=== PATIENT | female | born 1930 | race Caucasian/White ===

== ENCOUNTER 2020-11-11 19:55 | Emergency (ER) | payer OTHER ==
[~2020-11-11] VITALS: Ht 165.1 cm; Wt 49.9 kg
[2020-11-11 19:55] VITALS: BP_SYST 112
--- NOTE | 2020-11-11 20:00 | NUR ---
Patient biba from [facility] for a head injury. The patient evidently rolled out of bed, and bumped her head on an adjacent dresser. There was no LOC, and the patient only has minor discomfort now. She is sleeping comfortably in the ambulance gurney. Pt breathing easy, not in distress.
--- NOTE | 2020-11-11 20:01 | NUR ---
ER examining patient inside the ambulance
[2020-11-11] MEDS ORDERED: LOSA50TA3 PO (20:12)
[2020-11-11] MEDS ORDERED: BUSP7.5T7 PO (20:12)
[2020-11-11] MEDS ORDERED: NOR10 PO (20:12)
[2020-11-11] MEDS ORDERED: LEVO150T8 PO (20:13)
[2020-11-11] MEDS ORDERED: MONT10TA22 PO (20:14)
[2020-11-11] MEDS ORDERED: ACET325T53 PO (20:17)
[2020-11-11] MEDS ORDERED: ALBU8.5H8 INH (20:18)
[2020-11-11] MEDS ORDERED: LORA-258 PO (20:19)
--- NOTE | 2020-11-11 21:55 | NUR ---
Pt resting comfortably in the ambulance, resp even unlabored
--- NOTE | 2020-11-12 00:55 | NUR ---
Patient resting quietly. No acute distress noted. Vital signs within normal range.
--- NOTE | 2020-11-12 02:55 | NUR ---
Patient resting quietly in the ambulance [facility]. No acute distress noted. Vital signs within normal range.
--- NOTE | 2020-11-12 04:55 | NUR ---
Patient resting quietly in the ambulance [facility]. No acute distress noted. Vital signs within normal range.
--- NOTE | 2020-11-12 06:36 | NUR ---
Patient given written and verbal discharge instructions and verbalizes understanding. ER MD discussed with patient the results and treatment provided. Patient in stable condition. ID arm band removed. No Rx given. Patient educated on pain management and to follow up with PMD. Pain Scale 0/10ps.Opportunity for questions provided and answered.
[2020-11-12 06:55] VITALS: BP_SYST 128
--- NOTE | 2020-11-12 20:01 | NUR ---
Lulu collins in ED - 11/13/20 at 0222 by [email or web address] BETO Reina examining patient inside the ambulance
== END 2020-11-12 06:36 | disposition home or self-care (01) ==
LOC: SED 19:55
DX: S09.90XA Unspecified injury of head, initial encounter (principal); Z20.828 Contact with and (suspected) exposure to other viral communicable diseases; W06.XXXA Fall from bed, initial encounter; Y93.89 Activity, other specified; Y92.89 Other specified places as the place of occurrence of the external cause; Y99.8 Other external cause status
CPT/HCPCS: 36415; 70450-TC; 76376; 99284

== ENCOUNTER 2021-11-22 18:46 | Emergency (ER) | payer OTHER, SELFPAY ==
[~2021-11-22] VITALS: Ht 149.9 cm; Wt 38.6 kg
[~2021-11-22 18:46] MED LIST: ACET325T53 PO; ALBU8.5H8 INH; BUSP7.5T7 PO; LEVO150T8 PO; LORA-258 PO; LOSA50TA3 PO; MONT10TA22 PO; NOR10 PO
[2021-11-22 19:05] VITALS: BP_SYST 162
--- NOTE | 2021-11-22 19:05 | NUR ---
Pt. came in post a fall at half-way, states was laughing and fell, denies LOC or dizziness, c/o pain to back of head, neck and back 05/31, has C collar in place, remain on gurney with EMS [id number]
--- NOTE | 2021-11-22 19:23 | NUR ---
Informed Dr. Love of pts. arrival
[2021-11-22 22:50] VITALS: BP_SYST 99
--- NOTE | 2021-11-22 22:50 | NUR ---
Patient songiven written and verbal discharge instructions and verbalizes understanding. ER MD discussed with patient the results and treatment provided. Patient in stable condition. ID arm band removed. Patient educated on pain management and to follow up with PMD. Pain Scale 0. Opportunity for questions provided and answered. Medication side effect fact sheet provided.
== END 2021-11-22 22:50 | disposition home or self-care (01) ==
LOC: SED 18:46
DX: S09.90XA Unspecified injury of head, initial encounter (principal); M54.2 Cervicalgia; I10 Essential (primary) hypertension; Z79.899 Other long term (current) drug therapy; W18.39XA Other fall on same level, initial encounter; Y93.89 Activity, other specified; Y92.89 Other specified places as the place of occurrence of the external cause; Y99.8 Other external cause status
CPT/HCPCS: 70450-TC; 72125-TC; 76376; 99284

== ENCOUNTER 2022-02-19 18:28 | Emergency (ER) | payer OTHER, SELFPAY ==
[~2022-02-19] VITALS: Ht 152.4 cm; Wt 49.9 kg
--- NOTE | 2022-02-19 18:35 | NUR ---
Placed in room 03 . Placed on clinical research monitor, blood pressure machine and pulse oximeter. To gown for exam. Side rails up.
[2022-02-19 18:46] VITALS: BP_SYST 163
--- NOTE | 2022-02-19 18:46 | NUR ---
Patient comes to the ER due to slip and fall at her facility. The patient states she did not lose consciousness and remembers the entire event. Patient is alert and oriented to name,place, and time. Respiratory is within normal limits. No visible broken skin on head where the patinet contacted the cabinet she fell into. Patient reports 0/10 pain.
--- NOTE | 2022-02-19 18:46 | NUR ---
ER at bedside examining patient.
[2022-02-19] MEDS ORDERED: ACETAMINOPHEN 500 MG TABLET PO ONE (19:00)
--- NOTE | 2022-02-19 19:00 | NUR ---
Patient was offered tylenol, but has denied it for now. She is not currently in any pain and states she does not need the pain medication right now.
[2022-02-19 19:30] LABS: ANION GAP 10 (5-15); CALCIUM 10.6 mg/dL (8.4-11.0); CHLORIDE 107 mmol/L (98-107); CREATININE 0.44 mg/dL (0.55-1.30); GLUCOSE 76 mg/dL (70-99); POTASSIUM 3.6 mmol/L (3.5-5.1); SODIUM SERUM 143 mmol/L (136-145); UREA NITROGEN, BLOOD 16 mg/dL (8-21)
[2022-02-19 19:36] LABS: ALANINE AMINOTRANSFERASE 16 U/L (12-78); ALBUMIN 3.1 g/dL (3.4-4.8); ASPARTATE AMINOTRANSFERASE 18 U/L (10-37); LIPASE 117 U/L (73-393)
[2022-02-19 19:52] LABS: TOTAL BILIRUBIN 0.3 mg/dL (0.0-1.0)
[2022-02-19 19:53] LABS: BASOPHILS # (AUTO) 0.1 K/uL (0.0-0.2); BASOPHILS % (AUTO) 0.6 % (0.0-2.0); EOSINOPHILS # (AUTO) 0.2 K/uL (0.0-0.4); EOSINOPHILS % (AUTO) 1.7 % (0.0-4.0); HEMATOCRIT 41.5 % (36-48); HEMOGLOBIN 13.3 g/dL (12.0-16.0); LYMPHOCYTES # (AUTO) 2.2 K/uL (1.0-5.5); LYMPHOCYTES % (AUTO) 25.1 % (20.5-51.5); MEAN CORPUSCULAR HEMOGLOBIN 30 pg (27-31); MEAN CORPUSCULAR HGB CONC 32 % (32-36); MEAN CORPUSCULAR VOLUME 93 fL (79.0-98.0); MONOCYTES % (AUTO) 11.4 % (1.7-9.3); NEUTROPHILS # (AUTO) 5.3 K/uL (1.8-7.7); NEUTROPHILS % (AUTO) 61.2 % (40.0-70.0); PLATELET COUNT (AUTO) 256 K/uL (130-430); RED BLOOD CELL COUNT(AUTO) 4.46 MIL/uL (4.2-6.2); RED CELL DISTRIBUTION WIDTH 16.9 % (9.0-15.0); WHITE BLOOD COUNT (AUTO) 8.7 K/uL (4.8-10.8)
[2022-02-19] MEDS ORDERED: ACET325T PO (20:24)
[2022-02-19] MEDS ORDERED: ACETAMINOPHEN 500 MG TABLET ONE (21:10)
== END 2022-02-19 19:42 | disposition home or self-care (01) ==
LOC: SED 18:28 → EDBD 18:28 → SED 19:42
DX: S09.90XA Unspecified injury of head, initial encounter (principal); I10 Essential (primary) hypertension; Z79.899 Other long term (current) drug therapy; W18.39XA Other fall on same level, initial encounter; Y93.89 Activity, other specified; Y92.89 Other specified places as the place of occurrence of the external cause; Y99.8 Other external cause status
CPT/HCPCS: 36415; 70450-TC; 76376; 80053; 83690; 85025; 93005; 99285